=== PATIENT | male | born 1995 | race Two or more races ===

== ENCOUNTER 2025-05-19 17:07 | Emergency (ER) | payer SELFPAY ==
[~2025-05-19] VITALS: Ht 170.2 cm; Wt 77.3 kg
[2025-05-19 17:32] VITALS: BP 129/80; PULSE 74; RESP 18; TEMP 97.7; O2SAT 98
== END 2025-05-19 18:02 | disposition left against medical advice (07) ==
LOC: EMS 17:07
DX: M25.529 Pain in unspecified elbow (principal); Z53.21 Procedure and treatment not carried out due to patient leaving prior to being seen by health care provider